=== PATIENT | female | born 1970 | race Caucasian/White ===

== ENCOUNTER 2020-01-29 20:01 | Emergency (ER) | payer OTHER ==
[~2020-01-29] VITALS: Ht 167.6 cm; Wt 104.3 kg
[~2020-01-29 20:01] MED LIST: BENTYL 20 MG TA20 M1 PO; CARAFATE 1 GM TA1 G1 PO; LATUDA60 MG PO; NORCO 5-325 TA1 EACH PO; PAXIL10 MG PO; PHENERGAN 25 MG25 M1 PO; PRILOSEC 20 MG20 MG PO; ULTRAM 50MG TAB50 MG PO; XANAX1 MG PO; ZOFRAN ODT4 MG PO
[2020-01-29 20:04] VITALS: BP 118/83
[2020-01-29] MEDS ORDERED: PERCOCET 10-321 EAC1 PO (20:11)
[2020-01-29] MEDS ORDERED: SUDAFED 12 HOU120 MG PO (20:11)
[2020-01-29] MEDS ORDERED: MUCINEX600 MG (20:12)
[2020-01-29] MEDS ORDERED: PAXIL40 MG PO (20:12)
== END 2020-01-29 22:31 | disposition home or self-care (01) ==
LOC: ER 20:01
DX: J30.9 Allergic rhinitis, unspecified (principal); B34.9 Viral infection, unspecified; F17.210 Nicotine dependence, cigarettes, uncomplicated; Z79.899 Other long term (current) drug therapy; Z03.818 Encounter for observation for suspected exposure to other biological agents ruled out